=== PATIENT | male | born 1950 | race Caucasian/White ===

== ENCOUNTER 2017-02-13 10:55 | Day surgery (SDC) | payer MEDICARE, MEDICAID ==
[~2017-02-13 10:55] MED LIST: Acetaminophen TAB* 325 MG PO PRN; Buffered Lidocaine 0.9% SYRIN* 5 ML/SYR SYRINGE INTRADERM ONE
[2017-02-13] MEDS ORDERED: fentaNYL* 50 MCG/ML 2 ML VIAL (100 MCG VIAL) ONE (12:42)
[2017-02-13] MEDS ORDERED: Midazolam* 1 MG/ML 5 ML VIAL (5 MG) ONE (12:42)
[2017-02-13] MEDS ORDERED: Buffered Lidocaine 0.9% SYRIN* 5 ML/SYR SYRINGE ONE (13:33)
[2017-02-13] MEDS ORDERED: Povidone Iodine 5% OPTH* 30 ML BTL ONE (13:33)
[2017-02-13] MEDS ORDERED: Proparacaine 0.5% OPHTH.SOL* 15 ML BTL ONE (13:33)
[2017-02-13] MEDS ORDERED: Flurbiprofen 0.03% OPTH.SOL* 2.5 ML BTL ONE (13:33)
[2017-02-13] MEDS ORDERED: Lidocaine 1% MPF* 2 ML VIAL ONE (13:33)
[2017-02-13] MEDS ORDERED: Phenylephrine 2.5% OPTH.SOL* 2 ML BTL ONE (13:33)
[2017-02-13] MEDS ORDERED: Neomycin/Polymy/Dex OPTH.SUSP* MAXITROL 0.1% 5 ML ONE (13:33)
[2017-02-13] MEDS ORDERED: Cyclopentolate 1% OPTH.SOL* 2 ML BTL ONE (13:33)
[2017-02-13] MEDS ORDERED: acetaZOLAMIDE TAB* 250 MG ONE (13:33)
[2017-02-13] MEDS ORDERED: Lidocaine 2% EPI 1:200000 MPF* 20 ML VIAL ONE (13:33)
[2017-02-13] MEDS ORDERED: Midazolam* 1 MG/ML 2 ML VIAL (2 MG) ONE ×2 (13:50→13:53)
[2017-02-13 14:20] VITALS: BP 131/90
--- NOTE | 2017-02-14 02:36 | OP ---
DATE OF OPERATION: 02/13/17 - [facility] DATE OF : 52 SURGEON: Christo Swanson M.D. PREOPERATIVE DIAGNOSIS: Cataract, right eye. POSTOPERATIVE DIAGNOSIS: Cataract, right eye. OPERATIVE PROCEDURE: Phacoemulsification right eye with IOL. DESCRIPTION OF PROCEDURE: The patient was brought to the operating room after being given 1/2% Alcaine with epinephrine drops in the preoperative area. The eye was prepped and draped in the usual sterile fashion. Sterile drape and eyelid speculum were placed. Again, topical 1/2% Alcaine with epinephrine was given. A paracentesis incision was made at the 9 o'clock position with the No.75 blade. Clear cornea incision 2.2 x 2.2-mm was created at the 12 o'clock position starting at the anterior limbus using the 2.2-mm keratome. The anterior chamber was irrigated with 0.4 mL of 1% non-preservative intracameral lidocaine and filled with DisCoVisc. A capsulorrhexis was completed using the cystotome and the Utrata forceps. Hydrodissection was performed with balanced salt solution. The lens nucleus was removed with the Phacoemulsification handpiece without incident. Cortex was removed with the irrigation-aspiration handpiece. The capsular bag was re-inflated using DisCoVisc and an [id number] implant was inserted with the shooter. The irrigation-aspiration handpiece was used to remove all residual DisCoVisc. The eye was refilled with balanced salt solution and the wound checked and found to be watertight. Topical Maxitrol drops were given. [id number]/[facility] #: [id number] JOESPH
== END 2017-02-13 14:21 | disposition home or self-care (01) ==
LOC: OREAST 10:55
PROVIDERS: ATTEND Specialist
DX: H25.811 Combined forms of age-related cataract, right eye (principal); H35.371 Puckering of macula, right eye; B20 Human immunodeficiency virus [HIV] disease; I10 Essential (primary) hypertension
CPT/HCPCS: A9270-GY; J2250; J3010; V2632

== ENCOUNTER 2017-02-20 09:49 | Day surgery (SDC) | payer MEDICARE, MEDICAID ==
[2017-02-20] MEDS ORDERED: Midazolam* 1 MG/ML 5 ML VIAL (5 MG) ONE ×2 (11:55→12:06)
[2017-02-20] MEDS ORDERED: fentaNYL* 50 MCG/ML 2 ML VIAL (100 MCG VIAL) ONE (11:55)
[2017-02-20] MEDS ORDERED: Propofol* 10 MG/ML 20 ML BTL IV PUSH ONE (12:05)
[2017-02-20 12:47] VITALS: BP 131/84
[2017-02-20] MEDS ORDERED: Povidone Iodine 5% OPTH* 30 ML BTL ONE (14:47)
[2017-02-20] MEDS ORDERED: Proparacaine 0.5% OPHTH.SOL* 15 ML BTL ONE (14:47)
[2017-02-20] MEDS ORDERED: Cyclopentolate 1% OPTH.SOL* 2 ML BTL ONE (14:47)
[2017-02-20] MEDS ORDERED: Phenylephrine 2.5% OPTH.SOL* 2 ML BTL ONE (14:47)
[2017-02-20] MEDS ORDERED: Neomycin/Polymy/Dex OPTH.SUSP* MAXITROL 0.1% 5 ML ONE (14:47)
[2017-02-20] MEDS ORDERED: acetaZOLAMIDE TAB* 250 MG ONE (14:47)
[2017-02-20] MEDS ORDERED: Lidocaine 2% EPI 1:200000 MPF* 20 ML VIAL ONE (14:47)
[2017-02-20] MEDS ORDERED: Lidocaine 1% MPF* 2 ML VIAL ONE (14:47)
[2017-02-20] MEDS ORDERED: Buffered Lidocaine 0.9% SYRIN* 5 ML/SYR SYRINGE ONE (14:47)
[2017-02-20] MEDS ORDERED: Flurbiprofen 0.03% OPTH.SOL* 2.5 ML BTL ONE (14:47)
--- NOTE | 2017-02-21 10:18 | OP ---
DATE OF OPERATION: 02/20/17 - [facility] DATE OF : 52 SURGEON: Christo Swanson M.D. PREOPERATIVE DIAGNOSIS: Cataract, left eye. POSTOPERATIVE DIAGNOSIS: Cataract, left eye. OPERATIVE PROCEDURE: Phacoemulsification, left eye with IOL. DESCRIPTION OF PROCEDURE: The patient was brought to the operating room after being given 1/2% Alcaine with epinephrine drops in the preoperative area. The eye was prepped and draped in the usual sterile fashion. Sterile drape and eyelid speculum were placed. Again, topical 1/2% Alcaine with epinephrine was given. A paracentesis incision was made at the 3 o'clock position with the No.75 blade. Clear cornea incision 2.2 x 2.2-mm was created at the 6 o'clock position starting at the anterior limbus using the 2.2-mm keratome. The anterior chamber was irrigated with 0.4 mL of 1% non-preservative intracameral lidocaine and filled with DisCoVisc. A capsulorrhexis was completed using the cystotome and the Utrata forceps. Hydrodissection was performed with balanced salt solution. The lens nucleus was removed with the Phacoemulsification handpiece without incident. Cortex was removed with the irrigation-aspiration handpiece. The capsular bag was re-inflated using DisCoVisc and an [id number] implant was inserted with the shooter. The irrigation-aspiration handpiece was used to remove all residual DisCoVisc. The eye was refilled with balanced salt solution and the wound checked and found to be watertight. Topical Maxitrol drops were given. [id number]/[facility] #: [id number] MTDD
== END 2017-02-20 12:40 | disposition home or self-care (01) ==
LOC: OREAST 09:49
PROVIDERS: ATTEND Specialist
DX: H25.812 Combined forms of age-related cataract, left eye (principal); H35.371 Puckering of macula, right eye; Z96.1 Presence of intraocular lens; B20 Human immunodeficiency virus [HIV] disease; I10 Essential (primary) hypertension; F41.9 Anxiety disorder, unspecified; F43.10 Post-traumatic stress disorder, unspecified; E78.00 Pure hypercholesterolemia, unspecified; Z88.1 Allergy status to other antibiotic agents
CPT/HCPCS: A9270-GY; J2250; J2704; J3010; V2632